=== PATIENT | female | born 1940 | race Caucasian/White ===

== ENCOUNTER 2019-10-21 09:11 | Emergency (ER) | payer OTHER ==
[~2019-10-21] VITALS: Ht 165.1 cm; Wt 72.6 kg
[2019-10-21] MEDS ORDERED: LIPITOR 20 MG T20 M1 PO (09:30)
[2019-10-21] MEDS ORDERED: ELIQUIS5 MG PO (09:30)
[2019-10-21] MEDS ORDERED: CALCIUM500 MG PO (09:31)
[2019-10-21] MEDS ORDERED: CARVEDILOL25 MG PO (09:31)
[2019-10-21] MEDS ORDERED: CHLORTHALIDONE25 MG PO (09:32)
[2019-10-21] MEDS ORDERED: VITAMIN B-121000 MC2 SUBLING (09:32)
[2019-10-21] MEDS ORDERED: D-MANNOSE1 GM PO (09:33)
[2019-10-21] MEDS ORDERED: COZAAR 25 MG TA25 M1 PO (09:33)
[2019-10-21] MEDS ORDERED: FUROSEMIDE 20 M20 M1 PO (09:33)
[2019-10-21] MEDS ORDERED: SENNA PLUS TAB1 EACH PO (09:34)
[2019-10-21] MEDS ORDERED: KLOR-CON M2020 MEQ PO (09:34)
[2019-10-21] MEDS ORDERED: TYLENOL325 MG PO (09:35)
[2019-10-21] MEDS ORDERED: VITAMIN D350 MCG PO (09:35)
[2019-10-21] MEDS ORDERED: CITRATE OF MAG296 M1 PO (09:36)
[2019-10-21 10:01] LABS: ABSOLUTE EOSINOPHILS 0.2 thou/uL (0.0-0.7); ABSOLUTE LYMPHOCYTES 3.8 thou/uL (0.8-5.3); ABSOLUTE MONOCYTES 0.5 thou/uL (0.0-1.2); ABSOLUTE NEUTROPHILS 2.4 thou/uL (1.6-8.1); BASOPHILS 0.4 %; EOSINOPHILS 2.2 %; HEMATOCRIT 44.4 % (37.0-47.0); HEMOGLOBIN 15.2 gm/dL (12.0-15.0); LYMPHOCYTES 55.2 %; MCH 32.1 pg (26.0-34.0); MCHC 34.3 g/dL (28.0-37.0); MCV 93.7 fL (80.0-100.0); MONOCYTES 7.4 %; MPV 8.6 fl. (7.2-11.1); NUCLEATED RBCS 0 /100WBC; PLATELET COUNT* 136 thou/uL (150-400); POLYS 34.8 %; RBC 4.74 mil/uL (4.20-5.00); RDW-CV 14.4 % (10.5-14.5); WBC 6.9 thou/uL (4.0-11.0)
[2019-10-21 10:03] LABS: CALCIUM 9.5 mg/dL (8.5-10.1); CREATININE 0.8 mg/dL (0.6-1.3); POTASSIUM 3.5 mmol/L (3.5-5.1)
[2019-10-21 10:08] LABS: ALBUMIN 4.1 g/dL (3.4-5.0); TOTAL BILIRUBIN 1.8 mg/dL (<0.1-1.0)
[2019-10-21] MEDS ORDERED: KEFLEX500 M1 PO (11:40)
[2019-10-21 11:51] VITALS: BP 159/96
== END 2019-10-21 11:53 | disposition home or self-care (01) ==
LOC: M.ERS 09:11
PROVIDERS: Family Medicine
DX: S80.11XA Contusion of right lower leg, initial encounter (principal); R22.41 Localized swelling, mass and lump, right lower limb; I10 Essential (primary) hypertension; X58.XXXA Exposure to other specified factors, initial encounter; Y93.89 Activity, other specified; Y92.89 Other specified places as the place of occurrence of the external cause; Y99.8 Other external cause status